=== PATIENT | female | born 1945 | race Caucasian/White ===

== ENCOUNTER 2018-10-13 12:24 | Emergency (ER) | payer MEDICARE ==
[2018-10-13 12:35] VITALS: BP 115/80
--- NOTE | 2018-10-13 13:19 | UC ---
Back Pain HPI - HPI Summary HPI Summary: 73 yo female presents with low back pain. She tells me that about 2 weeks ago she fell down icy stairs and landed on her buttocks. Since that time has had lower back pain. She saw her PCP for this and was given flexeril and and NSAID, but pt says she has had no relief from this. Pain is worse with movement and coughing/sneezing. She has no radiation of the pain. No hx of back problems. She is ambulatory without assistance. Denies numbness, tingling, loss of bowel/ bladder function, dysuria. - History of Current Complaint Chief Complaint: UCBackPain Stated Complaint: LOWER BACK PAIN FELL Time Seen by Provider: 10/13/18 13:18 Hx Obtained From: Patient Onset/Duration: Sudden Onset Timing: Constant Severity Initially: Severe Severity Currently: Severe Pain Intensity: 10 Pain Scale Used: 0-10 Numeric - Allergies/Home Medications Allergies/Adverse Reactions: Allergies Allergy/AdvReac Type Severity Reaction Status Date / Time bupropion [From Wellbutrin] Allergy haedaches Verified 10/13/18 12:35 Home Medications: Home Medications ALPRAZolam [Alprazolam] 0.5 mg PO DAILY 10/13/18 [History Confirmed 10/13/18] FLUoxetine CAP* [Prozac CAP*] 20 mg PO DAILY 10/13/18 [History Confirmed ] Lovastatin(NF) [Mevacor(NF)] 20 mg PO DAILY 10/13/18 [History Confirmed 10/13/18 ] PMH/Surg Hx/FS Hx/Imm Hx Endocrine History: Dyslipidemia Psychological History: Anxiety, Depression - Surgical History Surgical History: Yes Surgery Procedure, Year, and Place: see above - Family History Known Family History: Positive: Unknown - Social History Lives: With Family Alcohol Use: Rare Substance Use Type: None Smoking Status (MU): Current Every Day Smoker Review of Systems All Other Systems Reviewed And Are Negative: Yes Constitutional: Positive: Negative Skin: Positive: Negative Respiratory: Positive: Negative Cardiovascular: Positive: Negative Gastrointestinal: Positive: Negative Genitourinary: Positive: Negative Neurovascular: Positive: Negative Musculoskeletal: Positive: Other: - Low back pain Neurological: Positive: Negative Psychological: Positive: Negative Physical Exam - Summary Physical Exam Summary: GENERAL: NAD. WDWN. No pain distress. SKIN: No rashes, sores, lesions, or open wounds. NECK: Supple. FROM. Nontender. No lymphadenopathy. CHEST: CTAB. No r/r/w. No accessory muscle use. Breathing comfortably and in no distress. CV: RRR. Without m/r/g. Pulses intact. Cap refill <2seconds MSK: Moderate TTP at vertebrae L1-L3. Mild TTP over lumbar paraspinal muscles. Pain with flexion and extension of spine. Positive SLR on right for low back pain without radiation. Strength 5/5 B/L LEs including dorsiflexion and plantar flexion. FROM B/L LEs. No edema. NEURO: Alert. Sensations intact B/L LEs L3-S1. PSYCH: Age appropriate behavior. Triage Information Reviewed: Yes Vital Signs: Initial Vital Signs Temp 96.7 F 10/13/18 12:31 Pulse 100 10/13/18 12:31 Resp 20 10/13/18 12:31 BP 115/80 10/13/18 12:31 Pulse Ox 100 10/13/18 12:31 Vital Signs Reviewed: Yes Back Pain Course/Dx - Course Course Of Treatment: CT: IMPRESSION: 1. There is an age indeterminant compression deformity of the L2 vertebral body superior. endplate with retropulsion of bony fragments abutting and distorting the ventral thecal. sac at the left of midline. 2. Degenerative disc disease at multiple levels causing varying degrees of mild central. canal or neural foraminal stenoses. 3. Infrarenal abdominal aortic aneurysm measuring up to 2.7 cm in diameter. Pt was given norco in the clinic and her pain reduced from a 10/10 to about a 4/ 10. Discussed results as above with pt. Advised to rest and apply ice to her back. May continue NSAIDs and will rx for lidoderm patch and a short supply of norco for times of increased pain. Advised to f/u with PCP in 1 week for a recheck. - Differential Dx/Diagnosis Provider Diagnosis: Compression fracture of L2 Discharge - Sign-Out/Discharge Documenting (check all that apply): Patient Departure All imaging exams completed and their final reports reviewed: Yes - Discharge Plan Condition: Stable Disposition: HOME Prescriptions: HYDROcodone/ACETAMIN 5-325 MG* [Gays 5-325 TAB*] 1 tab PO Q8H PRN #12 tab MDD 3 PRN Reason: Pain Lidocaine PATCH 5%* [Lidoderm 5% Patch*] 1 patch TRANSDERM DAILY PRN #1 box PRN Reason: Pain Patient Education Materials: Vertebral Compression Fracture (ED) Referrals: Fransico Gayle MD [Primary Care Provider] - 1 Week Additional Instructions: If you develop a fever, shortness of breath, chest pain, new or worsening symptoms - please call your PCP or go to the ED. Your blood pressure was high at todays visit. Please see your primary provider within 4 weeks for recheck and re-evaluation. 1) Rest and apply ice to your back 2) Please schedule a follow up with your Primary Doctor in 1 week for a recheck - Billing Disposition and Condition Condition: STABLE Disposition: Home
[2018-10-13] MEDS ORDERED: HYDROcodone/ACETAMIN 5-325 MG* 1 TAB PO ONE (13:24)
== END 2018-10-13 14:50 | disposition home or self-care (01) ==
LOC: UCEAST 12:24
DX: S32.020A Wedge compression fracture of second lumbar vertebra, initial encounter for closed fracture (principal); F17.200 Nicotine dependence, unspecified, uncomplicated; F32.9 Major depressive disorder, single episode, unspecified; Z88.8 Allergy status to other drugs, medicaments and biological substances; Z79.899 Other long term (current) drug therapy; W00.1XXA Fall from stairs and steps due to ice and snow, initial encounter; Y92.9 Unspecified place or not applicable
CPT/HCPCS: 72131; 99212; G0463

== ENCOUNTER 2024-01-28 10:01 | Inpatient (IN) ==
[2024-01-28] MEDS: Lactated Ringers 1000 ml BAG 1,000 ML IV ONE (10:38)
[2024-01-28] MEDS: Enoxaparin 60 MG/0.6 ML SYR SUBCUT ONE (10:39)
[2024-01-28 10:52] LABS: Hematocrit 39.1 % (35-45); Hemoglobin 12.4 g/dL (11.5-14.3); INR 1.44 (0.83-1.13); Mean Corpuscular Hemoglobin 23.7 pg (27-33); Mean Corpuscular Hgb Conc 31.6 g/dL (31-36); Mean Corpuscular Volume 75.1 fL (80-97); Platelet Count 233 10^3/uL (150-450); Red Blood Count 5.21 10^6/uL (3.63-4.92); Red Cell Distribution Width 17.5 % (12-17); White Blood Count 7.2 10^3/uL (3.8-11.8)
[2024-01-28 11:11] LABS: High Sens Troponin Baseline 67 pg/mL (<15)
[2024-01-28 11:15] LABS: ABS Basophils 0.1 10^3/uL (0.0-0.1); ABS Eosinophils 0.1 10^3/uL (0.0-0.5); ABS Lymphocytes 1.2 10^3/uL (1.0-4.8); ABS Monocytes 0.5 10^3/uL (0.0-0.9); ABS Neutrophils 5.3 10^3/uL (1.5-7.6); ABS Nucleated RBC 0.09 10^3/ul; Eosinophil % 1.4 %; Lymphocyte % 16.9 %; Nucleated Red Blood Cells % 1.2 %/100WBC (0.0-0.8)
[2024-01-28 11:35] LABS: ALT 15 U/L (7-52); Albumin 3.3 g/dL (3.2-5.2); Alkaline Phosphatase 164 U/L (35-149); Anion Gap 12 mmol/L (2-16); Blood Urea Nitrogen 23 mg/dL (6-24); CO2 Carbon Dioxide 20 mmol/L (22-32); Calcium 8.8 mg/dL (8.6-10.3); Chloride 101 mmol/L (101-111); Creatinine, Serum 1.03 mg/dL (0.51-0.95); Globulin 3.4 g/dL (2-4); Glucose 92 mg/dL (70-100); Sodium 133 mmol/L (135-145); Total Bilirubin 2.1 mg/dL (0.2-1.0); Total Protein 6.7 g/dL (6.4-8.9); eGFR CKD-EPI 55.3 (>60)
[2024-01-28 12:09] LABS: High Sensitivity Troponin 1 Hr 230 pg/mL (<15)
[2024-01-28 12:19] LABS: Potassium Redraw 3.8 mmol/L (3.5-5.0)
[2024-01-28] MEDS: Iodixanol (CONTRAST) 320 MG/ML 100 ML SDV IV ONE (12:22)
[2024-01-28] MEDS: Digoxin IV 0.5 MG/2 ML AMP (0.25 MG/ML) IV SLOW PU ONE (12:55)
[2024-01-28] MEDS: Furosemide 20 mg/2 ml IV VIAL IV SLOW PU ONE (15:37)
[2024-01-28] MEDS ORDERED: Digoxin IV 0.5 MG/2 ML AMP (0.25 MG/ML) IV SLOW PU PRN ×2 (15:52→19:00)
[2024-01-28 17:19] LABS: C Reactive Protein 21.13 mg/L (<8.01)
[2024-01-28] MEDS: Enoxaparin 60 MG/0.6 ML SYR SUBCUT SCH (20:29)
[2024-01-28] MEDS: Albuterol HFA INHALER 8 gm MDI INH PRN (22:06)
[2024-01-29] MEDS ORDERED: Sulfur Hexaflouride MICROSPHR 25 MG VIAL ONE (09:08)
[2024-01-29 10:57] LABS: HDL Cholesterol 9.5 mg/dL
[2024-01-29] MEDS ORDERED: KETAMINE HCL 10 MG/ML 20 ml VIAL (200 MG) ONE (11:41)
[2024-01-29] MEDS ORDERED: Propofol 10 MG/ML 20 ML BTL ONE (12:09)
[2024-01-29] MEDS ORDERED: Succinylcholine 200 mg VIAL 20 mg/ml 10 ml VIAL (200 mg) ONE (12:09)
[2024-01-29] MEDS ORDERED: Phenylephrine 40 mcg/mL 10mL (400mcg) SYRINGE ONE (12:09)
[2024-01-29] MEDS ORDERED: Glycopyrrolate IV 0.2 MG/ML 1 ML VIAL ONE (12:09)
[2024-01-29] MEDS ORDERED: Senna TAB 8.6 mg TAB PO PRN (12:22)
[2024-01-29 14:05] LABS: ABS Basophils 0.1 10^3/uL (0.0-0.1); ABS Eosinophils 0.1 10^3/uL (0.0-0.5); ABS Lymphocytes 1.4 10^3/uL (1.0-4.8); ABS Monocytes 0.5 10^3/uL (0.0-0.9); ABS Neutrophils 5.3 10^3/uL (1.5-7.6); ABS Nucleated RBC 0.07 10^3/ul; Hematocrit 36.2 % (35-45); Hemoglobin 11.3 g/dL (11.5-14.3); Lymphocyte % 18.4 %; Mean Corpuscular Hemoglobin 23.5 pg (27-33); Mean Corpuscular Hgb Conc 31.2 g/dL (31-36); Mean Corpuscular Volume 75.3 fL (80-97); Nucleated Red Blood Cells % 0.9 %/100WBC (0.0-0.8); Platelet Count 200 10^3/uL (150-450); Red Blood Count 4.81 10^6/uL (3.63-4.92); Red Cell Distribution Width 17.9 % (12-17); White Blood Count 7.3 10^3/uL (3.8-11.8)
[2024-01-29 15:00] LABS: % Iron Saturation 5 % (15-55); .Transferrin 290 mg/dL (203-362); ALT 15 U/L (7-52); AST 30 U/L (13-39); Albumin 2.9 g/dL (3.2-5.2); Albumin/Globulin Ratio 0.9 (1-3); Alkaline Phosphatase 144 U/L (35-149); Anion Gap 10 mmol/L (2-16); Blood Urea Nitrogen 26 mg/dL (6-24); CO2 Carbon Dioxide 21 mmol/L (22-32); Calcium 8.4 mg/dL (8.6-10.3); Chloride 103 mmol/L (101-111); Globulin 3.1 g/dL (2-4); Glucose 103 mg/dL (70-100); Iron < 20 ug/dL (50-212); Magnesium 1.8 mg/dL (1.9-2.7); Potassium 4.1 mmol/L (3.5-5.0); Sodium 134 mmol/L (135-145); Total Bilirubin 1.7 mg/dL (0.2-1.0); Total Iron Binding Capacity 406 mcg/dL (250-450); Unsaturated Iron Binding 386 ug/dL; eGFR CKD-EPI 57.3 (>60)
[2024-01-29 15:13] LABS: Ferritin 20.2 ng/mL (11-307)
[2024-01-29 15:15] LABS: PCO2 Arterial 31 mmHg (35-45); PO2 Arterial 126 mmHg (80-100)
[2024-01-29] MEDS ORDERED: Albuterol/Ipratropium NEB.SOL (2.5/0.5 MG) 3 ML NEB.SOLN INH PRN (15:28)
[2024-01-29] MEDS: Ferric Gluconate IV 125 MG in NS 0.9% 100 ml BAG 100 ML IVPB SCH (19:13)
[2024-01-29] MEDS: Magnesium Sulfate 2 gm BAG 2 GM/50 ML BAG IVPB ONE (20:13)
[2024-01-30 04:55] LABS: Calcium 8.1 mg/dL (8.6-10.3); Creatinine, Serum 1.04 mg/dL (0.51-0.95); Magnesium 2.4 mg/dL (1.9-2.7); Potassium 3.8 mmol/L (3.5-5.0); eGFR CKD-EPI 54.7 (>60)
[2024-01-30 05:18] LABS: Hematocrit 33.3 % (35-45); Hemoglobin 10.7 g/dL (11.5-14.3); Mean Corpuscular Volume 74.9 fL (80-97); Mean Platelet Volume 9.5 fL (7.5-11.2); Platelet Count 194 10^3/uL (150-450); Red Blood Count 4.44 10^6/uL (3.63-4.92); Red Cell Distribution Width 17.1 % (12-17); White Blood Count 7.7 10^3/uL (3.8-11.8)
[2024-01-30 05:46] LABS: ABS Basophils 0.1 10^3/uL (0.0-0.1); ABS Eosinophils 0.1 10^3/uL (0.0-0.5); ABS Lymphocytes 1.3 10^3/uL (1.0-4.8); ABS Monocytes 0.6 10^3/uL (0.0-0.9); ABS Neutrophils 5.6 10^3/uL (1.5-7.6); ABS Nucleated RBC 0.13 10^3/ul; Anisocytosis 1+; Eosinophil % 1.1 %; Lymphocyte % 17.3 %; Microcytosis 1+; Nucleated Red Blood Cells % 1.7 %/100WBC (0.0-0.8)
[2024-01-30] MEDS: Potassium Chlor 20 meq TAB.ER PO ONE (06:18)
[2024-01-30] MEDS: KCL 10 MEQ/50 ML IVPREMIX 10 MEQ/50 ML BAG IV SCH (06:20)
[2024-01-30] MEDS ORDERED: Polyethylene Glycol 3350 17 GM PACKET PO PRN (09:22)
[2024-01-31 07:06] LABS: Calcium 8.1 mg/dL (8.6-10.3); Creatinine, Serum 1.03 mg/dL (0.51-0.95); Magnesium 2.2 mg/dL (1.9-2.7); eGFR CKD-EPI 55.3 (>60)
[2024-01-31 07:23] LABS: ABS Basophils 0.1 10^3/uL (0.0-0.1); ABS Eosinophils 0.1 10^3/uL (0.0-0.5); ABS Lymphocytes 1.6 10^3/uL (1.0-4.8); ABS Monocytes 0.7 10^3/uL (0.0-0.9); ABS Nucleated RBC 0.15 10^3/ul; Eosinophil % 1.2 %; Hematocrit 34.4 % (35-45); Hemoglobin 10.7 g/dL (11.5-14.3); Lymphocyte % 18.6 %; Mean Corpuscular Hemoglobin 23.3 pg (27-33); Mean Corpuscular Hgb Conc 31.2 g/dL (31-36); Mean Corpuscular Volume 74.6 fL (80-97); Mean Platelet Volume 9.4 fL (7.5-11.2); Nucleated Red Blood Cells % 1.8 %/100WBC (0.0-0.8); Platelet Count 186 10^3/uL (150-450); Red Blood Count 4.61 10^6/uL (3.63-4.92); Red Cell Distribution Width 17.5 % (12-17); White Blood Count 8.3 10^3/uL (3.8-11.8)
[2024-02-01 06:29] LABS: Hematocrit 34.7 % (35-45); Mean Corpuscular Hemoglobin 23.5 pg (27-33); Mean Corpuscular Hgb Conc 31.7 g/dL (31-36); Mean Corpuscular Volume 74.4 fL (80-97); Mean Platelet Volume 9.2 fL (7.5-11.2); Platelet Count 210 10^3/uL (150-450); Red Blood Count 4.67 10^6/uL (3.63-4.92); Red Cell Distribution Width 17.8 % (12-17); White Blood Count 7.8 10^3/uL (3.8-11.8)
[2024-02-01 06:38] LABS: Calcium 8.2 mg/dL (8.6-10.3); Creatinine, Serum 1.14 mg/dL (0.51-0.95); Magnesium 2.1 mg/dL (1.9-2.7); Potassium 4.1 mmol/L (3.5-5.0)
[2024-02-01 07:58] LABS: ABS Basophils 0.1 10^3/uL (0.0-0.1); ABS Eosinophils 0.1 10^3/uL (0.0-0.5); ABS Lymphocytes 1.2 10^3/uL (1.0-4.8); ABS Monocytes 0.6 10^3/uL (0.0-0.9); ABS Neutrophils 5.8 10^3/uL (1.5-7.6); ABS Nucleated RBC 0.09 10^3/ul; Anisocytosis 1+; Eosinophil % 0.8 %; Hypochromasia 1+; Lymphocyte % 15.7 %; Microcytosis 1+; Nucleated Red Blood Cells % 1.2 %/100WBC (0.0-0.8); Polychromasia 1+
[2024-02-01] MEDS: SPIRIVA Respimat (tiotropium) 2.5 mcg/inh Inhaler INH SCH (15:24)
[2024-02-02 06:08] LABS: ABS Lymphocytes 1.4 10^3/uL (1.0-4.8); ABS Monocytes 0.5 10^3/uL (0.0-0.9); ABS Neutrophils 6.6 10^3/uL (1.5-7.6); ABS Nucleated RBC 0.06 10^3/ul; Calcium 8.4 mg/dL (8.6-10.3); Creatinine, Serum 1.29 mg/dL (0.51-0.95); Eosinophil % 0.5 %; Hematocrit 36.7 % (35-45); Hemoglobin 11.8 g/dL (11.5-14.3); Lymphocyte % 16.2 %; Magnesium 2.1 mg/dL (1.9-2.7); Mean Corpuscular Hemoglobin 24.1 pg (27-33); Mean Corpuscular Hgb Conc 32.1 g/dL (31-36); Nucleated Red Blood Cells % 0.7 %/100WBC (0.0-0.8); Platelet Count 220 10^3/uL (150-450); Potassium 4.3 mmol/L (3.5-5.0); Red Blood Count 4.89 10^6/uL (3.63-4.92); Red Cell Distribution Width 17.9 % (12-17); White Blood Count 8.6 10^3/uL (3.8-11.8); eGFR CKD-EPI 42.2 (>60)
[2024-02-02 09:20] LABS: INR 2.4 (0.83-1.13)
[2024-02-02] MEDS: Enoxaparin 60 MG/0.6 ML SYR SUBCUT ONE (09:24)
[2024-02-02] MEDS: Bumetanide IV 0.25 MG/ML 4 ml VIAL (1 mg) IV SLOW PU ONE (09:24)
[2024-02-02] MEDS ORDERED: Sulfur Hexaflouride MICROSPHR 25 MG VIAL ONE (12:05)
[2024-02-02] MEDS: Enoxaparin 60 MG/0.6 ML SYR SUBCUT SCH (21:13)
[2024-02-02 21:57] LABS: Rapid COVID-19 Molecular Undetected (Undetected)
[2024-02-03 10:23] VITALS: BP 94/68
== END 2024-02-03 10:55 | disposition short-term general hospital (02) | DRG 280 ==
LOC: ED 10:01 → EDHOLD 10:01 → SUATTDRO 14:25 → MEDTELE 15:58 → ICU 01-29 13:57 → SUATTDRO 01-30 07:00 → MEDTELE 01-30 17:46
PROVIDERS: ADMIT Hospitalist; ATTEND Internal Medicine